=== PATIENT | male | born 1970 | race Caucasian/White ===

== ENCOUNTER 2017-03-07 12:51 | Observation (INO) ==
[2017-03-07 15:03] LABS: Basophils # 0.1 K/mcL (0.0-0.2); Basophils % 0.6 %; Eosinophils # 0.2 K/mcL (0.0-0.6); Eosinophils % 1.4 %; Hematocrit 41.9 % (37.5-50.1); Hemoglobin 14.1 g/dL (12.9-16.9); Immature Granulocytes % 0.4 % (0-4); Lymphocytes # 2.4 K/mcL (0.6-4.6); Lymphocytes % 22.8 %; Mean Corpuscular HGB Conc 33.7 g/dL (31.6-35.5); Mean Corpuscular Volume 89.1 fL (83.0-100.0); Mean Platelet Volume 9.2 fL (9.4-12.4); Monocytes # 0.9 K/mcL (0.0-1.3); Monocytes % 8.1 %; Platelet Count 277 K/mcL (140-400); Red Cell Distribution Width 12.3 % (11.5-14.5); Segmented Neutrophils % 66.7 %
[2017-03-07 15:14] LABS: BUN/Creatinine Ratio 22 (6-26); Blood Urea Nitrogen 17 mg/dL (8-26); Calcium 10.1 mg/dL (8.6-10.8); Carbon Dioxide 28 mEq/L (19-29); Chloride 105 mEq/L (98-109); Glucose 96 mg/dL (70-99); Osmolality,Calculated 293 (280-300); Potassium 4.8 mEq/L (3.5-4.5); Sodium 141 mEq/L (136-145); eGFR For African Americans > 60 (> 60); eGFR For Non-African Americans > 60 (> 60)
--- NOTE | 2017-03-07 15:25 | Emergency Department Note ---
Disposition Clinical Impression: Near syncope Hypertension Qualifiers: Hypertension type: unspecified Qualified Code(s): I10 - Essential (primary) hypertension Disposition: Admitted As Inpatient Condition: Good Referrals: Gregoria León CNP [Primary Care Provider] - Forms: ED Satisfaction Letter, Work/School Release Time of Disposition: 18:13 General Adult HPI - General Chief complaint: ED General Medical Stated complaint: HTN Time Seen by Provider: 03/07/17 15:21 Source: patient Mode of arrival: ambulatory Limitations: no limitations Nursing Notes Reviewed: Yes Vital Signs Reviewed: Yes - History of Present Illness HPI Narrative: 46-year-old male who comes in complaining of dizziness lightheadedness. Patient was at work developed symptoms had his blood pressure taken and it was noted to have a diastolic of 112. On arrival his diastolic is 116. He denies chest pain does have some dizziness. Pt Subjective Complaint: Elevated blood pressure dizziness Onset (ago): Just [employer] FUM[employer] Pain Scale: 0 Associated symptoms: Reports: other (Dizziness) Treatments Prior to Arrival: none - Related Data Home Medications Medication Instructions Recorded Confirmed Meloxicam [Meloxicam] 15 mg PO DAILY 03/07/17 03/07/17 Allergies Allergy/AdvReac Type Severity Reaction Status Date / Time No Known Allergies Allergy Verified 06/02/15 14:15 All systems ED: reviewed and negative except as stated. Constitutional: Denies: fever, chills, weakness, weight change Eyes: Denies: eye pain, eye discharge, vision change ENT ED: Denies: ear pain, throat pain, dental pain, hearing loss, epistaxis, congestion, dysphagia Cardiovascular: Denies: chest pain, palpitations, dyspnea on exertion, edema, syncope Respiratory: Denies: cough, dyspnea, wheezes, hemoptysis, stridor Gastrointestinal: Denies: abdominal pain, nausea, vomiting, diarrhea, constipation, hematemesis, melena, hematochezia Genitourinary: Denies: urgency, dysuria, frequency, hematuria Musculoskeletal: Denies: back pain, neck pain, arthralgia, myalgia Integumentary: Denies: rash, abrasion, lesions Neurological: Reports: other (Dizziness). Denies: headache, weakness, numbness , paresthesias, confusion, abnormal gait, vertigo Psychiatric: Denies: anxiety, depression, suicidal thoughts, homicidal thoughts , auditory hallucinations, visual hallucinations Endocrine: Denies: fatigue Hematological/Lymphatic: Denies: easy bleeding, easy bruising Allergic/Immunologic: Denies: facial swelling, urticaria Past Medical History - Past Medical History Medical history: Reports: arthritis Psychiatric history: Reports: no psych history - Social History Smoking Status: Never smoker Smokeless Tobacco Status: No Alcohol use: Reports: heavy, recent Drug use: Reports: none Physical Exam - General Limitations: no limitations General appearance: alert, in no apparent distress - Head Head exam: atraumatic, normocephalic, normal inspection - Eye Eye exam: Present: normal appearance, PERRL, EOMI - ENT ENT exam: normal exam, normal oropharynx, mucous membranes moist - Neck Neck exam: Present: normal inspection, full ROM, trachea midline - Chest Chest inspection: Present: normal inspection, symmetric chest wall rise - Respiratory Respiratory exam: Present: normal lung sounds bilaterally - Cardiovascular Cardiovascular exam: Present: regular rate, normal rhythm, normal heart sounds - Abdominal Exam Abdominal exam: Present: soft, Non-Tender. Absent: tenderness, distention, guarding, rebound, rigidity - Extremities Exam Extremities exam: Present: normal inspection, full ROM. Absent: tenderness, pedal edema - Expanded Lower Extremity Exam Neurovascular/Tendon exam: Absent: motor deficit, sensory deficit, tendon deficit Gait: observed and normal - Back Exam Back exam: Present: normal inspection, full ROM. Absent: tenderness - Neurological Exam Neurological exam: Present: alert, oriented X3, normal gait. Absent: motor sensory deficit - Psychiatric Psychiatric exam: Present: normal affect, normal mood - Skin Skin exam: Present: warm, dry, intact, normal color Course - Reevaluation(s) Reevaluation #1: 46-year-old who comes in complaining of acute onset of diaphoresis, elevated blood pressure, near syncope. Workup included an EKG that showed the no acute ST segment change. D-dimer was elevated a CTA of the chest was negative for acute pulmonary embolism. Time: 18:12 - Consultations Consultation #1: Discussed with Edi Murphy, chele. Time: 18:40 Vital Signs Temperature 98.3 F 03/07/17 12:53 Pulse Rate 76 03/07/17 12:53 Respiratory Rate 16 03/07/17 12:53 Blood Pressure 168/116 03/07/17 12:53 O2 Sat by Pulse Oximetry 97 03/07/17 12:53 Temperature 98.3 F 10/16/17 12:53 Pulse Rate 73 03/07/17 16:44 Respiratory Rate 16 03/07/17 16:44 Blood Pressure 169/107 03/07/17 16:44 O2 Sat by Pulse Oximetry 97 03/07/17 16:44 Oxygen Delivery Oxygen Delivery Room Air Medical Decision Making - Lab Data Lab results reviewed: Yes I reviewed the patient's lab results. Result diagrams: 03/07/17 14:55 03/07/17 14:55 Lab Results 03/07/17 03/07/17 03/07/17 Range/Units 14:55 14:55 14:55 WBC 10.6 (4.3-11.1) K/mcL RBC 4.70 (4.19-5.50) M/mcL Hgb 14.1 (12.9-16.9) g/dL Hct 41.9 (37.5-50.1) % MCV 89.1 (83.0-100.0) fL MCH 30.0 (28.0-33.3) pg MCHC 33.7 (31.6-35.5) g/dL RDW 12.3 (11.5-14.5) % Plt Count 277 (140-400) K/mcL MPV 9.2 L (9.4-12.4) fL Immature Gran % 0.4 (0-4) % Seg Neutrophils % 66.7 % Lymphocytes % 22.8 % Monocytes % 8.1 % Eosinophils % 1.4 % Basophils % 0.6 % Neutrophils # 7.0 (1.6-8.9) K/mcL Lymphocytes # 2.4 (0.6-4.6) K/mcL Monocytes # 0.9 (0.0-1.3) K/mcL Eosinophils # 0.2 (0.0-0.6) K/mcL Basophils # 0.1 (0.0-0.2) K/mcL D-Dimer (0-500) ng/mLFEU Sodium 141 (136-145) mEq/L Potassium 4.8 H (3.5-4.5) mEq/L Chloride 105 (98-109) mEq/L Carbon Dioxide 28 (19-29) mEq/L BUN 17 (8-26) mg/dL Creatinine 0.76 (0.72-1.25) mg/dL Est GFR ( Amer) > 60 (> 60) Est GFR (Non-Af Amer) > 60 (> 60) BUN/Creatinine Ratio 22 (6-26) Glucose 96 (70-99) mg/dL Calculated Osmolality 293 (280-300) Calcium 10.1 (8.6-10.8) mg/dL Troponin I 0.00 (0-0.03) ng/mL 03/07/17 Range/Units 14:55 WBC (4.3-11.1) K/mcL RBC (4.19-5.50) M/mcL Hgb (12.9-16.9) g/dL Hct (37.5-50.1) % MCV (83.0-100.0) fL MCH (28.0-33.3) pg MCHC (31.6-35.5) g/dL RDW (11.5-14.5) % Plt Count (140-400) K/mcL MPV (9.4-12.4) fL Immature Gran % (0-4) % Seg Neutrophils % % Lymphocytes % % Monocytes % % Eosinophils % % Basophils % % Neutrophils # (1.6-8.9) K/mcL Lymphocytes # (0.6-4.6) K/mcL Monocytes # (0.0-1.3) K/mcL Eosinophils # (0.0-0.6) K/mcL Basophils # (0.0-0.2) K/mcL D-Dimer 794 H (0-500) ng/mLFEU Sodium (136-145) mEq/L Potassium (3.5-4.5) mEq/L Chloride (98-109) mEq/L Carbon Dioxide (19-29) mEq/L BUN (8-26) mg/dL Creatinine (0.72-1.25) mg/dL Est GFR ( Amer) (> 60) Est GFR (Non-Af Amer) (> 60) BUN/Creatinine Ratio (6-26) Glucose (70-99) mg/dL Calculated Osmolality (280-300) Calcium (8.6-10.8) mg/dL Troponin I (0-0.03) ng/mL - Radiology Data Radiology results reviewed: Yes I reviewed the patient's radiology results. Chest X-Ray 03/07/17 15:30 IMPRESSION: No acute process. No pulmonary nodule appreciated D/ / Grabiel Nixon MD / Grabiel Nixon MD Interpreting Provider: Grabiel Nixon MD
[2017-03-07] MEDS ORDERED: 0.9 % Sodium Chloride 1,000 ML IVC ONE (20:07)
[2017-03-07] MEDS ORDERED: Ondansetron 4 MG/2 ML VIAL IVP ONE (22:39)
[2017-03-07] MEDS ORDERED: Acetaminophen 325 MG TABLET PO ONE (22:39)
[2017-03-07] MEDS ORDERED: 0.9 % Sodium Chloride 1,000 ML IVC SCH (23:45)
[2017-03-07] MEDS ORDERED: Naloxone 0.4 MG/ML INJ IVP PRN (23:56)
--- NOTE | 2017-03-08 00:02 | Event Note ---
Date of Encounter: 03/07/17 Time of Encounter: 23:54 Patient seen and examined with medical service technician. Patients with no known medical history presents to the hospital with main complain of dizziness unsteadiness where he had to hold onto the weber to ambulates and nausea. He was found to be hypertensive with diastolic in the 110s. Will get CT scan of the head. NIH stroke scale Q4 hours. Check echocardiogram and carotid Doppler. Neurological examination intact on my exam. He has metallic prothesis for prior hip surgery precluding ability to perform MRI.
[2017-03-08] MEDS: Aspirin 81 MG TAB.CHEW PO SCH ×2 (00:27→10:33)
--- NOTE | 2017-03-08 00:27 | Internal Med History&Physical ---
Date of Encounter: 03/08/17 Time of Encounter: 20:00 Assessment and Plan (1) Near syncope Current visit: Yes Status: Acute Patient presented with near syncopal episode. -Blood pressure was found be elevated. -Patient did have an elevated d-dimer at 794; CTA performed in the emergency department was unremarkable. -We will get CT scan of the head; rule out the possibility of stroke. -NIH stroke scale every 4 hours. -Echocardiogram and carotid Doppler. -Patient cannot receive MRI, due to metal prosthesis in his hip. (2) Hypertension Current visit: Yes Status: Acute Patient's blood pressure on admission was 169/107. -Patient will be started on ASA 81 mg once per day. -Lipitor 10 mg daily. -Follow-up in the outpatient setting for the future management of hypertension. Qualifiers: Hypertension type: unspecified Qualified Code(s): I10 - Essential (primary ) hypertension (3) S/P total hip arthroplasty Current visit: No Status: Acute Patient has had complete hip replacement. -He is therefore unable to receive MRI. Qualifiers: Laterality: left Qualified Code(s): Z96.642 - Presence of left artificial hip joint Internal Medicine - H&P: HPI Chief complaint: presyncope Admitted From: Home History of present illness: Mr. Luevano is a 46 year old male with a past medical history of arthritis presented to the emergency department with chief complaint of presyncopal episode. Patient states that he was at work when this happened. He was in a seated position when he began to feel lightheaded. He describes his lightheadedness as feeling dizzy. He did not feel as though the room was spinning. This lasted approximately 5 minutes. When he attempted to get up to stand and walk around, patient had a hard time maintaining his balance. This entire episode of lightheadedness lasted on and off for approximately 30 minutes. At no time did he fall or lose consciousness. He denied feeling weak during this episode. He denies ever having anything like this before. He did admit to having some sweating when this happened. When patient's blood pressure was checked, was elevated at 169/107. Patient denies having any nausea , vomiting, fever, chills, shortness of breath, or chest pain. He has no known cardiac history. Patient denies having any neurologic deficits such as weakness , numbness, tingling, or slurred speech. At the time of arrival to hospital, patient no longer feels dizzy and has no complaints at this time. Past Med Surg Social Fam HX - Past Medical History Medical history: arthritis Psychiatric history: no psych history - Past Surgical History Surgical History: hip replacement - Social History Smoking Status: Never smoker Smokeless Tobacco Status: No Alcohol use: heavy, recent Drug use: none - Family History Mother Age: 68 Living Status: Still Living Hx Family Cancer: Yes Hx Family Neurologic Disorders: Yes (CVA) Internal Medicine - H&P: Meds Meloxicam [Meloxicam] 15 mg PO DAILY 03/07/17 [History] 3 Allergy/AdvReac Type Severity Reaction Status Date / Time No Known Allergies Allergy Verified 06/02/15 14:15 All Systems PM: A 10-system review of systems was performed and is negative for pertinent findings except as documented above in the HPI. - Constitutional Constitutional: no chills, no fever(s), no night sweats - EENT Eyes: no change in vision, no discharge, no pain, no photophobia Ears: no tinnitus - Cardiovascular Cardiovascular ROS IM: diaphoresis, lightheadedness, no chest pain, no dyspnea, no palpitations - Respiratory Respiratory: no cough, no dyspnea, no wheezing, no excessive phlegm production - Gastrointestinal Gastrointestinal: no abdominal pain, no diarrhea, no hematemesis, no hematochezia, no melena, no nausea, no vomiting - Musculoskeletal Musculoskeletal ROS IM: no numbness, no tingling - Integumentary Integumentary IM: no rash, no unusual bruising - Neurological Neurological ROS: dizziness, no confusion, no convulsions, no focal weakness, no numbness, no tingling, no tremor(s) - Constitutional Vitals: Temp Pulse Resp BP Pulse Ox 98.4 F 76 16 164/107 98 03/07/17 23:24 03/07/17 23:24 03/07/17 23:24 03/07/17 23:24 03/07/17 23:24 General appearance: Present: A&O X 3, no acute distress, answers questions appropriately - Head Head exam: Present: atraumatic, normocephalic - Neck Neck exam general surgery: Present: supple, trachea midline. Absent: lymphadenopathy - Respiratory Respiratory exam: Present: CTAB. Absent: accessory muscle use, rales, rhonchi, wheezes - Cardiovascular Cardiovascular exam: Present: RRR, +S1, +S2. Absent: diastolic murmur, gallop, rubs, systolic murmur - GI/Abdominal GI/Abdominal exam: Present: normal bowel sounds, soft, no peritoneal signs. Absent: distended, tenderness - Extremities Exam Extremities exam: Present: warm, radial pulses palpable and symmetrical. Absent : calf tenderness, cyanotic, pedal edema - Skin Skin exam: Present: dry, intact Internal Med - H&P Results - Labs CBC & Chem 7: 03/07/17 14:55 03/07/17 14:55 - Impressions ITS Impressions Head CT 03/07/17 22:37 IMPRESSION: No acute intracranial abnormality. D/ / Jules Mcclellan MD / Jules Mcclellan MD Interpreting Provider: Jules Mcclellan MD
[2017-03-08] MEDS ORDERED: *HR* Heparin 5,000 UNIT/ML VIAL SQ SCH (06:00)
[2017-03-08 06:19] LABS: Basophils # 0.1 K/mcL (0.0-0.2); Basophils % 0.7 %; Eosinophils # 0.2 K/mcL (0.0-0.6); Hematocrit 37.8 % (37.5-50.1); Hemoglobin 12.7 g/dL (12.9-16.9); Immature Granulocytes % 0.3 % (0-4); Lymphocytes # 2.5 K/mcL (0.6-4.6); Lymphocytes % 32.3 %; Mean Corpuscular HGB Conc 33.6 g/dL (31.6-35.5); Mean Corpuscular Hemoglobin 29.8 pg (28.0-33.3); Mean Corpuscular Volume 88.7 fL (83.0-100.0); Mean Platelet Volume 9.8 fL (9.4-12.4); Monocytes # 0.6 K/mcL (0.0-1.3); Monocytes % 7.8 %; Neutrophils # 4.3 K/mcL (1.6-8.9); Platelet Count 237 K/mcL (140-400); Red Blood Count 4.26 M/mcL (4.19-5.50); Red Cell Distribution Width 12.3 % (11.5-14.5); Segmented Neutrophils % 55.9 %
[2017-03-08 06:34] LABS: Alanine Aminotransferase 27 Units/L (0-55); Albumin 3.3 g/dL (3.5-5.0); Albumin/Globulin Ratio 1.1 (1.1-2.2); Alkaline Phosphatase 57 Units/L (38-126); Aspartate Amino Transferase 21 Units/L (5-34); BUN/Creatinine Ratio 22 (6-26); Bilirubin,Total 0.4 mg/dL (0.2-1.2); Blood Urea Nitrogen 15 mg/dL (8-26); Calcium 8.5 mg/dL (8.6-10.8); Carbon Dioxide 27 mEq/L (19-29); Chloride 104 mEq/L (98-109); Chol/HDL Ratio 4.1 (0-4.9); Cholesterol 141 mg/dL (< 200); Globulin 3.1 g/dL (2.4-3.5); Glucose 91 mg/dL (70-99); HDL Cholesterol 34 mg/dL (40-59); LDL Cholesterol,Calculated 72 mg/dL (0-99); Magnesium 1.7 mg/dL (1.6-2.6); Osmolality,Calculated 288 (280-300); Phosphorous 3.7 mg/dL (2.3-4.7); Potassium 3.7 mEq/L (3.5-4.5); Sodium 139 mEq/L (136-145); Total Protein 6.4 g/dL (6.0-8.3); Triglycerides 174 mg/dL (< 150); eGFR For African Americans > 60 (> 60); eGFR For Non-African Americans > 60 (> 60)
[2017-03-08] MEDS ORDERED: Perflutren Lipid Microsphere 1.3 ML in 0.9 % Sodium Chloride 8.7 ML IVP ONE (09:52)
[2017-03-08] MEDS ORDERED: Ketorolac 30 MG/ML VIAL IVP ONE (10:31)
[2017-03-08] MEDS ORDERED: Metoclopramide 10 MG/2 ML VIAL IVP ONE (10:31)
[2017-03-08] MEDS: amLODIPine 5 MG TABLET PO SCH (11:46)
--- NOTE | 2017-03-08 12:54 | Electrocardiograph Report ---
[place] [id number] Test Date: 2017-03-07 Pat Name: Karthikeyan Luevano Department: 104 Room: 3B Gender: M First Aid Nurse: : 1970 Requested By: Khushi Grady Order Number: [id number] Reading MD: Leonor Franks Measurements Intervals [place] Rate: 73 P: 45 RI: 201 QRS: -1 QRSD: 86 T: 46 QT: 378 QTc: 404 Interpretive Statements SINUS RHYTHM MODERATE VOLTAGE CRITERIA FOR LVH, CONSIDER NORMAL VARIANT Electronically Signed On 03-08-2017 12:52:07 EDT by Leonor Franks
--- NOTE | 2017-03-08 14:02 | Internal Med Progress Note ---
Date of Encounter: 03/08/17 Time of Encounter: 14:00 - Assessment and plan (1) Near syncope Current Visit: Yes Status: Acute Assessment and plan: Karthikeyan Luevano is a 46 she will male with no significant past medical history who presented to [facility] on 03/07/2017 with complaints of near syncope. He was found to have uncontrolled blood pressure and was placed in observation status for further workup and treatment. 1. Hypertensive Urgency: With SBP's in 160s-170s and DBPs in 100s. No previous history of hypertension. Start amlodipine. Monitor BP and titrate PRN 2. Near Syncope: On day of presentation. Patient reports episode of lightheadedness with associated nausea that lasted for approximately 30 minutes. Patient continues report symptoms on 03/08 exam that are worse with movement. Head CT nonacute. TTE with normal EF, no valvular dysfunction. Carotids pending. Check orthostatic BPs. 3. Headache: Patient reports headache to bilateral temporal region that radiates to the occipital area with associated nausea. Symptoms worse with movement. No history of migraines. Headache improved with Tylenol and headache cocktail. Brain MRI pending 4. DVT prophylaxis: Heparin (2) Hypertension Current Visit: Yes Status: Acute Qualifiers: Hypertension type: unspecified Qualified Code(s): I10 - Essential (primary ) hypertension - Subjective Interval history: Seen and examined at bedside, patient is new to me. Information obtained from chart review and patient report. Patient still with dizziness, lightheadedness. He also reports a headache with associated nausea. Activity/ movement makes symptoms worse. He received a dose of Tylenol last night that improved headache. No blurred or double vision. No paresthesias. - Constitutional Vitals: Temp Pulse Resp BP Pulse Ox 97.6 F 66 16 137/83 99 03/08/17 11:46 03/08/17 11:46 03/08/17 11:46 03/08/17 11:46 03/08/17 11:46 General appearance: Present: A&O X 3, no acute distress, answers questions appropriately - Head Head exam: Present: atraumatic, normocephalic - Eye Eye exam: Present: PERRL, conjuntiva pink, sclera anicteric Pupils: Present: PERRL - Neck Neck exam general surgery: Present: supple, trachea midline. Absent: lymphadenopathy - Respiratory Respiratory exam: Present: CTAB. Absent: accessory muscle use, rales, rhonchi, wheezes - Cardiovascular Cardiovascular exam: Present: RRR, +S1, +S2. Absent: diastolic murmur, gallop, rubs, systolic murmur - GI/Abdominal GI/Abdominal exam: Present: normal bowel sounds, soft, no peritoneal signs. Absent: distended, tenderness - Extremities Exam Extremities exam: Present: warm, radial pulses palpable and symmetrical. Absent : calf tenderness, cyanotic, pedal edema - Neurological Exam Neurological exam: Present: CN II-XII intact, oriented X3, no focal deficits. Absent: pronater drift, facial droop, speech deficit - Skin Skin exam: Present: dry, intact Internal Medicine: Result - Labs CBC & Chem 7: 03/08/17 04:56 03/08/17 04:56 Labs: Short CBC 03/08/17 Range/Units 04:56 WBC 7.7 (4.3-11.1) K/mcL Hgb 12.7 L (12.9-16.9) g/dL Hct 37.8 (37.5-50.1) % Plt Count 237 (140-400) K/mcL Neutrophils # 4.3 (1.6-8.9) K/mcL BMP 03/08/17 04:56 Sodium 139 Potassium 3.7 D Chloride 104 Carbon Dioxide 27 BUN 15 Creatinine 0.69 L Glucose 91 Calcium 8.5 L D Cardiac Enzymes 03/08/17 Range/Units 04:56 Troponin I 0.00 (0-0.03) ng/mL Liver Function 03/08/17 Range/Units 04:56 Total Bilirubin 0.4 (0.2-1.2) mg/dL AST 21 (5-34) Units/L ALT 27 (0-55) Units/L Alkaline Phosphatase 57 (38-126) Units/L Albumin 3.3 L (3.5-5.0) g/dL - ABG Interpretation ABG results: PT/INR, D-dimer D-Dimer 794 ng/mLFEU (0-500) H 03/07/17 14:55 - Impressions Impressions Head CT 03/07/17 22:37 IMPRESSION: No acute intracranial abnormality. D/ / Jules Mcclellan MD / Jules Mcclellan MD Interpreting Provider: Jules Mcclellan MD Echocardiogram 03/08/17 00:03 Impressions: LVEF 60-65%. Normal LV chamber size, wall thickness and function. Mild left ventricular diastolic dysfunction. Normal right ventricular structure and function. Moderately dilated left atrium. Unable to estimate RVSP due to lack of TR jet. No significant valvular dysfunction. Left Ventricular Wall Motion: Rest Echo Findings All wall segments showed normal motion. Findings: Study Quality * Technically adequate exam. ECG Findings * Normal sinus rhythm. Left Ventricle * LVEF 60-65%. * Normal LV chamber size, wall thickness and function. * Mild left ventricular diastolic dysfunction. Right Ventricle * Normal right ventricular structure and function. Left Atrium * Moderately dilated left atrium. Right Atrium * Mildly dilated right atrium. Interatrial Septum * Interatrial septum not well evaluated. Aortic Valve * Aortic valve not well visualized. Grossly appears to be trileaflet. * No aortic regurgitation. * No aortic stenosis. Mitral Valve * Normal mitral valve structure and function. * No mitral regurgitation. * No mitral stenosis. Tricuspid Valve * Normal tricuspid valve structure and function. * No tricuspid regurgitation. * Unable to estimate RVSP due to lack of TR jet. Pulmonic Valve * Normal pulmonic valve structure. * Trace pulmonic regurgitation. Aorta * Normally sized aortic root. Pericardium * The pericardium appears normal. IVC * The IVC is not well evaluated. Pulmonary Artery * Normal visualized portions of the main pulmonary artery. Consult Discharge Plan - Plan Referrals: Gregoria León CNP [Primary Care Provider] - 03/15/17 1:00 pm
[2017-03-08] MEDS: *HR* Heparin 5,000 UNIT/ML VIAL SQ SCH ×2 (14:52→23:44)
[2017-03-08] MEDS: Acetaminophen 325 MG TABLET PO PRN (18:42)
[2017-03-09 04:06] LABS: Basophils % 0.6 %; Eosinophils # 0.2 K/mcL (0.0-0.6); Eosinophils % 3.3 %; Hematocrit 38.9 % (37.5-50.1); Hemoglobin 13.3 g/dL (12.9-16.9); Immature Granulocytes % 0.3 % (0-4); Lymphocytes # 2.3 K/mcL (0.6-4.6); Lymphocytes % 35.9 %; Mean Corpuscular HGB Conc 34.2 g/dL (31.6-35.5); Mean Corpuscular Hemoglobin 30.4 pg (28.0-33.3); Mean Platelet Volume 10.2 fL (9.4-12.4); Monocytes # 0.5 K/mcL (0.0-1.3); Monocytes % 8.2 %; Neutrophils # 3.3 K/mcL (1.6-8.9); Platelet Count 203 K/mcL (140-400); Red Blood Count 4.37 M/mcL (4.19-5.50); Red Cell Distribution Width 11.9 % (11.5-14.5); Segmented Neutrophils % 51.7 %
[2017-03-09 04:21] LABS: Alanine Aminotransferase 28 Units/L (0-55); Albumin 3.4 g/dL (3.5-5.0); Alkaline Phosphatase 60 Units/L (38-126); Aspartate Amino Transferase 23 Units/L (5-34); BUN/Creatinine Ratio 23 (6-26); Bilirubin,Total 0.3 mg/dL (0.2-1.2); Blood Urea Nitrogen 15 mg/dL (8-26); Calcium 8.8 mg/dL (8.6-10.8); Carbon Dioxide 24 mEq/L (19-29); Chloride 106 mEq/L (98-109); Globulin 3.4 g/dL (2.4-3.5); Glucose 102 mg/dL (70-99); Osmolality,Calculated 287 (280-300); Sodium 138 mEq/L (136-145); Total Protein 6.8 g/dL (6.0-8.3); eGFR For African Americans > 60 (> 60); eGFR For Non-African Americans > 60 (> 60)
[2017-03-09 07:23] VITALS: BP 155/90
[2017-03-09] MEDS: amLODIPine 5 MG TABLET PO SCH (08:04)
[2017-03-09] MEDS: Acetaminophen 325 MG TABLET PO PRN (08:04)
[2017-03-09] MEDS: *HR* Heparin 5,000 UNIT/ML VIAL SQ SCH (08:04)
[2017-03-09] MEDS: Aspirin 81 MG TAB.CHEW PO SCH (08:05)
--- NOTE | 2017-03-09 09:21 | Discharge Summary ---
Date of Encounter: 03/09/17 Time of Encounter: 09:16 - Discharge Diagnosis (1) Near syncope Priority: Primary Status: Acute Comments: Karthikeyan Luevano is a 46 she will male with no significant past medical history who presented to [facility] on 03/07/2017 with complaints of near syncope. He was found to have uncontrolled blood pressure and was placed in observation status for further workup and treatment. 1. Hypertensive Urgency: With SBP's in 160s-170s and DBPs in 100s. No previous history of hypertension. BP significantly improved with adding amlodipine. Cont amlodipine at discharge. Recommended follow-up with PCP within one week for BP recheck 2. Near Syncope: On day of presentation. Patient reports episode of lightheadedness with associated nausea that lasted for approximately [address] negative. Brain MRI with nonspecific bilateral mastoid effusions, otherwise non-acute. TTE with normal EF, no valvular dysfunction. Bilateral carotid dopplers normal. Suspect secondary to uncontrolled BP as sx's improved with control of BP and/or mastoid effusions. Symptoms resolved at time of discharge. 3. Headache: Patient reports headache to bilateral temporal region that radiates to the occipital area with associated nausea. Symptoms worse with movement. No history of migraines. Headache improved with Tylenol and headache cocktail. Brain MRI negative. Suspect secondary to uncontrolled BP and/ or mastoid effusions. Symptoms resolved at time of discharge. 4. Bilateral mastoid effusions: Brain MRI with bilateral nonspecific mastoid effusions. No evidence of acute otitis media on otoscope exam, afebrile and patient denies drainage or pain. However will treat with topical ear ATB drops considering patient's symptoms of near syncope and headache. Recommend follow- up with PCP within one week. (2) Hypertension Priority: Primary Status: Acute Qualifiers: Hypertension type: essential hypertension Qualified Code(s): I10 - Essential (primary) hypertension - Discharge Medications Prescriptions: amLODIPine [Norvasc] 10 mg PO DAILY #30 tablet Ciprofloxacin OPTH Soln [Ciloxan OPTH Soln] 2 drop BOTH EARS BID 7 Days #1 bottle Home Medications: Meloxicam 15 mg PO DAILY 03/07/17 [History] Ciprofloxacin OPTH Soln [Ciloxan OPTH Soln] 2 drop BOTH EARS BID 7 Days #1 bottle 03/09/17 [Rx] amLODIPine [Norvasc] 10 mg PO DAILY #30 tablet 03/09/17 [Rx] Allergies/Adverse Reactions: 3 Allergy/AdvReac Type Severity Reaction Status Date / Time No Known Allergies Allergy Verified 03/08/17 09:51 Procedures/tests Complete & Pending: Procedures Performed prior 72 hours Category Date Time Status CT head/brain wo con [CT] Stat Cat Scan 03/07/17 22:37 Completed MR head/brain wo con [MR] Routine MRI 03/08/17 10:41 Completed EV carotid duplex imaging BI Routine Y 03/08/17 00:03 Completed EV echocardiogram w enhance Routine Y 03/08/17 00:03 Completed Date of admission: 03/07/17 18:51 Primary care physician: Gregoria León CNP Discharging clinician: Yohana Radford Anticipated date of discharge: 03/09/17 - Patient Status Disposition: Home, Self-Care Functional capacity at discharge: independent ambulation Overall status at discharge: patient is back to baseline - Discharge Instructions Follow Up With: Gregoria León CNP [Primary Care Provider] - 03/15/17 1:00 pm - Diet and Activity Activity: resume usual activities as tolerated Diet: low fat, low cholesterol Interval History: Seen and examined at bedside. Patient says he feels significantly improved, once to go home today. Still with slight headache but overall greatly improved as blood pressure was controlled. Patient advised to monitor blood pressure and keep record and take to PCP on BP recheck. Denies chest pain, no shortness of breath. No lightheadedness or dizziness on my exam. Hospital course: See assessment and plan for hospital course - Time Spent with Patient Total time spent providing and/or coordinating discharge services: Less than 30 minutes - Constitutional Vitals: Temp Pulse Resp BP Pulse Ox 97.7 F 58 15 155/90 98 03/09/17 07:22 03/09/17 07:22 03/09/17 07:22 03/09/17 07:22 03/09/17 07:22 General appearance: Present: A&O X 3, no acute distress, answers questions appropriately - Head Head exam: Present: atraumatic, normocephalic - Eye Eye exam: Present: PERRL, conjuntiva pink, sclera anicteric Pupils: Present: PERRL - ENT ENT exam: Present: normal exam, normal external ear exam, TM's normal bilaterally Additional comments: Otoscope exam by myself and bilateral ears with normal tympanic membrane. No bulging or erythema noted no drainage canal tenderness. - Expanded ENT Exam Ear exam: Absent: auricular hematoma, auricular trauma, external canal tenderness - Neck Neck exam general surgery: Present: supple, trachea midline. Absent: lymphadenopathy - Respiratory Respiratory exam: Present: CTAB. Absent: accessory muscle use, rales, rhonchi, wheezes - Cardiovascular Cardiovascular exam: Present: RRR, +S1, +S2. Absent: diastolic murmur, gallop, rubs, systolic murmur - GI/Abdominal GI/Abdominal exam: Present: normal bowel sounds, soft, no peritoneal signs. Absent: distended, tenderness - Extremities Exam Extremities exam: Present: warm, radial pulses palpable and symmetrical. Absent : calf tenderness, cyanotic, pedal edema - Neurological Exam Neurological exam: Present: CN II-XII intact, oriented X3, no focal deficits. Absent: pronater drift, facial droop, speech deficit - Skin Skin exam: Present: dry, intact
== END 2017-03-09 11:01 | disposition home or self-care (01) ==
LOC: 3BNU 12:51 → EMEROO 12:51 → 3BNU 20:03
PROVIDERS: ADMIT Hospitalist; ATTEND Registered Nurse

== ENCOUNTER 2020-11-04 09:59 | Inpatient (IN) ==
[~2020-11-04 09:59] MED LIST: Famotidine 20 MG/2 ML VIAL IVP ONE; Ringers Solution, Lactated 1,000 ML IVC ONE
[2020-11-04] MEDS ORDERED: CeFAZolin Syr 3,000MG/30 ML 3,000 MG/30 ML SYRINGE IVPB ONE (10:19)
[2020-11-04] MEDS ORDERED: Ringers Solution, Lactated 1,000 ML IVC SCH (10:30)
[2020-11-04] MEDS ORDERED: Acetaminophen IV 1,000 MG/100 ML BAG IVPB ONE (10:33)
[2020-11-04] MEDS ORDERED: Albuterol 2.5 MG/3 ML NEBULIZER IH PRN (11:46)
[2020-11-04] MEDS ORDERED: Naloxone 0.4 MG/ML INJ IVP PRN ×2 (11:46→17:51)
[2020-11-04] MEDS ORDERED: Nitroglycerin 0.4 MG TAB.SUBL SL PRN (11:46)
[2020-11-04] MEDS ORDERED: *HR* FentaNYL (PF) 100 MCG/2 ML VIAL IVP PRN (11:46)
[2020-11-04] MEDS ORDERED: Ondansetron 4 MG/2 ML VIAL IVP PRN ×2 (11:46→17:51)
[2020-11-04] MEDS ORDERED: *HR* FentaNYL (PF) 100 MCG/2 ML VIAL ONE (12:25)
[2020-11-04] MEDS ORDERED: *HR* Midazolam HCl 2 MG/2 ML VIAL ONE (12:25)
[2020-11-04] MEDS ORDERED: *HR* Propofol 200 MG/20 ML VIAL IVP ONE ×2 (12:25→13:26)
[2020-11-04] MEDS ORDERED: Lidocaine HCL 4 ML Topical Solution (Laryng-O-Jet Kit Sterile Pak) TP ONE (12:30)
[2020-11-04] MEDS ORDERED: Ondansetron 4 MG/2 ML VIAL ONE (12:30)
[2020-11-04] MEDS ORDERED: Lidocaine -MPF 2% 2 ML VIAL ONE (12:30)
[2020-11-04] MEDS ORDERED: *HR* Succinylcholine 200 MG/10 ML VIAL IVP ONE (12:30)
[2020-11-04] MEDS ORDERED: *HR* Rocuronium Bromide 50 MG/5 ML VIAL ONE ×3 (12:30→14:42)
[2020-11-04] MEDS ORDERED: Heparin 1,000 UNITS/500 mL 500 ML ONE (12:52)
[2020-11-04] MEDS ORDERED: *HR* HYDROMORPHONE 2 MG/ML VIAL ONE (14:26)
[2020-11-04] MEDS ORDERED: Sugammadex Sodium 200 MG/2 ML VIAL IV ONE (14:56)
[2020-11-04] MEDS: *HR* HYDROmorphone (PF) 1 MG/ML SYRINGE IVP PRN ×4 (16:40→16:58)
[2020-11-04] MEDS ORDERED: *HR* HYDROmorphone (PF) 1 MG/ML SYRINGE IVP PRN (17:07)
[2020-11-04] MEDS ORDERED: Acetaminophen 325 MG TABLET PO PRN (17:51)
[2020-11-04] MEDS: 0.9 % Sodium Chloride 1,000 ML IVC SCH (19:26)
[2020-11-04] MEDS: *HR* HYDROcodone/Acet 5/325 mg TABLET PO PRN (23:02)
[2020-11-05 05:39] LABS: Basophils % 0.1 %; Hematocrit 37.4 % (37.5-50.1); Hemoglobin 12.5 g/dL (12.9-16.9); Immature Granulocytes % 0.4 % (0-4); Lymphocytes % 7.4 %; Mean Corpuscular HGB Conc 33.4 g/dL (31.6-35.5); Mean Corpuscular Hemoglobin 31.1 pg (28.0-33.3); Mean Platelet Volume 9.6 fL (9.4-12.4); Monocytes # 0.9 K/mcL (0.0-1.3); Monocytes % 6.7 %; Neutrophils # 11.5 K/mcL (1.6-8.9); Platelet Count 255 K/mcL (140-400); Red Blood Count 4.02 M/mcL (4.19-5.50); Red Cell Distribution Width 12.4 % (11.5-14.5); Segmented Neutrophils % 85.4 %; White Blood Count 13.4 K/mcL (4.3-11.1)
[2020-11-05 05:57] LABS: BUN/Creatinine Ratio 13 (6-26); Blood Urea Nitrogen 13 mg/dL (6-20); Calcium 8.7 mg/dL (8.6-10.3); Carbon Dioxide 26 mEq/L (23-29); Chloride 99 mEq/L (98-107); Glucose 123 mg/dL (70-105); Osmolality,Calculated 277 (280-300); Sodium 133 mEq/L (136-145); eGFR For African Americans > 60 (> 60); eGFR For Non-African Americans > 60 (> 60)
[2020-11-05] MEDS: amLODIPine 5 MG TABLET PO SCH (08:18)
[2020-11-05] MEDS: *HR* OxyCODONE Immed Rel 5 MG TABLET PO PRN ×3 (08:19→21:07)
[2020-11-05] MEDS: *HR* HYDROcodone/Acet 5/325 mg TABLET PO PRN (12:30)
[2020-11-05] MEDS: 0.9 % Sodium Chloride 1,000 ML IVC SCH (12:30)
[2020-11-06] MEDS: *HR* OxyCODONE Immed Rel 5 MG TABLET PO PRN ×2 (03:16→08:57)
[2020-11-06 07:18] LABS: Hematocrit 39.5 % (37.5-50.1); Hemoglobin 12.8 g/dL (12.9-16.9); Mean Corpuscular HGB Conc 32.4 g/dL (31.6-35.5); Mean Corpuscular Hemoglobin 30.6 pg (28.0-33.3); Mean Corpuscular Volume 94.5 fL (83.0-100.0); Mean Platelet Volume 9.5 fL (9.4-12.4); Platelet Count 250 K/mcL (140-400); Red Blood Count 4.18 M/mcL (4.19-5.50); Red Cell Distribution Width 12.9 % (11.5-14.5); White Blood Count 18.2 K/mcL (4.3-11.1)
[2020-11-06 08:15] LABS: BUN/Creatinine Ratio 14 (6-26); Blood Urea Nitrogen 17 mg/dL (6-20); Calcium 8.7 mg/dL (8.6-10.3); Carbon Dioxide 29 mEq/L (23-29); Chloride 95 mEq/L (98-107); Glucose 121 mg/dL (70-105); Osmolality,Calculated 273 (280-300); Potassium 4.4 mEq/L (3.5-5.1); Sodium 130 mEq/L (136-145); eGFR For African Americans > 60 (> 60); eGFR For Non-African Americans > 60 (> 60)
[2020-11-06] MEDS: amLODIPine 5 MG TABLET PO SCH (08:57)
[2020-11-06] MEDS: CeFAZolin 2 GM/120 ML BAG IVPB SCH ×3 (08:58→23:42)
[2020-11-06] MEDS: *HR* HYDROcodone/Acet 5/325 mg TABLET PO PRN (18:31)
[2020-11-06] MEDS ORDERED: Bisacodyl 10 MG RECTAL SUPPOSITORY RC SCH (21:00)
[2020-11-07] MEDS: *HR* OxyCODONE Immed Rel 5 MG TABLET PO PRN (06:57)
[2020-11-07 08:21] VITALS: BP 115/70
[2020-11-07] MEDS: CeFAZolin 2 GM/120 ML BAG IVPB SCH (09:08)
[2020-11-07] MEDS: amLODIPine 5 MG TABLET PO SCH (09:09)
== END 2020-11-07 11:30 | disposition home or self-care (01) | DRG 657 ==
LOC: SAMDAY 09:59 → 3ANU 17:50
PROVIDERS: ADMIT Urology; ATTEND Urology